=== PATIENT | female | born 1945 | race Caucasian/White ===

== ENCOUNTER 2017-01-31 10:07 | Inpatient (IN) | payer OTHER ==
[~2017-01-31] VITALS: Ht 165.1 cm; Wt 92.0 kg
[~2017-01-31 10:07] MED LIST: CALCIUM 600 +1 EA15 PO; FERROUS SULFAT324 M1 PO; FUROSEMIDE20 MG PO; GLYBURIDE1.25 MG PO; METFORMIN HCL1000 MG PO; PROMACTA50 MG PO; SPIRONOLACTONE50 MG PO; VITAMIN D32000 UNI1 PO
[2017-01-31 11:19] LABS: EOSINOPHIL (%) 0 % (0-5); HEMATOCRIT 32.4 % (36.0-46.0); IMMATURE GRANULOCYTE (%) 0.3 % (0.0-0.7); INSTRUMENT ABS NEUTROPHIL CT 2.5 K/uL; LYMPHOCYTE COUNT 0.4 K/uL (1.0-2.8); MCH 30.9 PG (29.0-34.0); MCHC 32.4 G/DL (30.0-36.0); MONOCYTE (%) 7.4 % (3-12); MONOCYTE COUNT 0.2 K/uL (0-0.8); NEUTROPHIL (%) 80.4 % (45-76); NEUTROPHIL COUNT 2.5 K/uL (1.8-6.4); RBC DIS.WIDTH-CV 15.6 % (11.8-14.6); RBC DIS.WIDTH-SD 54.4 % (39-53)
[2017-01-31 11:20] LABS: INTER. NORMALIZED RATIO 1.3
[2017-01-31 11:21] LABS: CHLORIDE 106 mEq/L (99-109); POTASSIUM 4.5 mEq/L (3.7-5.4); SODIUM 136 mEq/L (136-147)
[2017-01-31 11:23] LABS: GLUCOSE 162 mg/dL (70-99)
[2017-01-31 11:24] LABS: ANION GAP 7 MEQ/L (2-14)
[2017-01-31 11:25] LABS: TOTAL BILIRUBIN 3.1 mg/dL (0.0-1.0)
[2017-01-31 11:26] LABS: ALKALINE PHOSPHATASE 77 IU/L (3-129)
[2017-01-31 11:27] LABS: GFR ESTIMATE (CALCULATED) 52 mL/min/
[2017-01-31 11:28] LABS: UREA NITROGEN (BUN) 31 mg/dL (9-23)
[2017-01-31 11:30] LABS: LIPASE 31 U/L (1.0-51.0)
[2017-01-31 11:59] LABS: IMM.PLATELET FRACTION 2.7 (1-7); PLAT.SUFFICIENCY DECREASED
[2017-01-31 12:00] LABS: MCV 95.3 FL (83-99); PLATELET COUNT 42 K/uL (156-360); WHITE BLOOD COUNT 3.1 K/uL (4.1-10.2)
[2017-01-31] MEDS ORDERED: CALCIUM 600 +1 EAC3 PO (15:07)
[2017-01-31] MEDS ORDERED: PROAIR HFA8.5 GM IH (15:08)
[2017-01-31 22:19] LABS: POINT-OF-CARE METER ID UU13113675
[2017-02-01 00:01] VITALS: BP 121/56
[2017-02-01 03:46] VITALS: BP 117/53
[2017-02-01 07:49] LABS: HEMATOCRIT 22.7 % (36.0-46.0); MCH 31.7 PG (29.0-34.0); MCHC 32.2 G/DL (30.0-36.0); MCV 98.7 FL (83-99); RBC DIS.WIDTH-CV 15.8 % (11.8-14.6); RBC DIS.WIDTH-SD 57.1 % (39-53); WHITE BLOOD COUNT 2.6 K/uL (4.1-10.2)
[2017-02-01 08:02] LABS: IMM.PLATELET FRACTION 2.4 (1-7); PLAT.SUFFICIENCY DECREASED
[2017-02-01 08:04] LABS: PLATELET CLUMPS PRESENT
[2017-02-01 08:05] LABS: ANION GAP 6 MEQ/L (2-14); CHLORIDE 110 MEQ/L (99-109); GFR ESTIMATE (CALCULATED) 47 mL/min/; GLUCOSE 167 mg/dL (70-99); SAMPLE HEMOLYSIS CHECK 0; SAMPLE ICTERIC CHECK 0; SAMPLE LIPEMIA CHECK 0; SODIUM 139 MEQ/L (136-147); UREA NITROGEN (BUN) 34 mg/dL (9-23)
[2017-02-01 08:30] VITALS: BP 112/61
[2017-02-01 12:02] LABS: POINT-OF-CARE METER ID UU14162508
[2017-02-01 12:11] VITALS: BP 110/56
[2017-02-01 16:05] VITALS: BP 105/53
[2017-02-01 17:10] LABS: POINT-OF-CARE METER ID UU14162508
[2017-02-01 20:04] VITALS: BP 124/53
[2017-02-02 00:14] VITALS: BP 108/49
[2017-02-02 04:11] VITALS: BP 109/52
[2017-02-02 08:00] VITALS: BP 125/60
[2017-02-02 11:15] LABS: HEMATOCRIT 24.3 % (36.0-46.0); MCH 31.8 PG (29.0-34.0); MCHC 31.7 G/DL (30.0-36.0); MCV 100.4 FL (83-99); RBC DIS.WIDTH-CV 16.1 % (11.8-14.6); RBC DIS.WIDTH-SD 59.7 % (39-53); RED BLOOD COUNT 2.42 M/uL (3.80-5.20); WHITE BLOOD COUNT 3.2 K/uL (4.1-10.2)
[2017-02-02 11:44] LABS: IMM.PLATELET FRACTION 2.7 (1-7); PLAT.SUFFICIENCY DECREASED; PLATELET CLUMPS PRESENT - PLATELET COUNTS APPEARS DECREASED; PLATELET COUNT UNABLE TO REPORT K/uL (156-360)
[2017-02-02 11:51] VITALS: BP 112/51
[2017-02-02 16:00] VITALS: BP 128/60
[2017-02-02 16:20] LABS: POINT-OF-CARE METER ID UU13113714; POINT-OF-CARE USER ID ENVKLS06
[2017-02-02 16:43] LABS: POINT-OF-CARE METER ID UU14162508
[2017-02-02 22:37] LABS: POINT-OF-CARE METER ID UU14162508
[2017-02-02 23:26] VITALS: BP 121/58
[2017-02-03 07:38] LABS: HEMATOCRIT 23.8 % (36.0-46.0); MCH 32.1 PG (29.0-34.0); MCHC 31.9 G/DL (30.0-36.0); MCV 100.4 FL (83-99); RBC DIS.WIDTH-CV 16.4 % (11.8-14.6); RBC DIS.WIDTH-SD 59.7 % (39-53); RED BLOOD COUNT 2.37 M/uL (3.80-5.20); WHITE BLOOD COUNT 3.1 K/uL (4.1-10.2)
[2017-02-03 08:00] VITALS: BP 122/58
[2017-02-03 08:18] LABS: IMM.PLATELET FRACTION 2.5 (1-7); PLATELET CLUMPS PRESENT - PLATELET COUNTS APPEARS DECREASED
[2017-02-03 08:42] LABS: PLATELET COUNT 45 K/uL (156-360)
[2017-02-03 12:00] VITALS: BP 116/58
[2017-02-03 12:00] LABS: POINT-OF-CARE USER ID PUTDRM
[2017-02-03 16:00] VITALS: BP 120/56
[2017-02-03 16:53] LABS: POINT-OF-CARE USER ID PUTDRM
[2017-02-03 21:43] LABS: POINT-OF-CARE METER ID UU14162508
[2017-02-03 23:07] VITALS: BP 134/60
[2017-02-04 03:32] VITALS: BP 115/56
[2017-02-04 06:37] LABS: POINT-OF-CARE METER ID UU14162508
[2017-02-04 07:05] VITALS: BP 134/61
[2017-02-04 11:26] LABS: POINT-OF-CARE METER ID UU14162508
[2017-02-04 15:50] VITALS: BP 129/54
[2017-02-04 22:29] LABS: POINT-OF-CARE METER ID UU14162508
[2017-02-04 23:44] VITALS: BP 115/55
[2017-02-05 06:38] LABS: POINT-OF-CARE METER ID UU14162508
[2017-02-05 07:05] LABS: HEMATOCRIT 21.5 % (36.0-46.0); MCH 32.6 PG (29.0-34.0); MCHC 33.5 G/DL (30.0-36.0); MCV 97.3 FL (83-99); RBC DIS.WIDTH-CV 16.4 % (11.8-14.6); RBC DIS.WIDTH-SD 56.9 % (39-53); RED BLOOD COUNT 2.21 M/uL (3.80-5.20)
[2017-02-05 07:08] LABS: WHITE BLOOD COUNT 1.9 K/uL (4.1-10.2)
[2017-02-05 07:25] VITALS: BP 124/58
[2017-02-05 07:47] LABS: IMM.PLATELET FRACTION 2.8 (1-7); MEAN PLAT.VOLUME 12.4 uM^3 (9.5-12.4); PLAT.SUFFICIENCY DECREASED
[2017-02-05 07:49] LABS: PLATELET COUNT ND K/uL (156-360)
[2017-02-05 11:56] LABS: POINT-OF-CARE METER ID UU14162508
[2017-02-05 15:22] VITALS: BP 117/57
[2017-02-05 16:31] LABS: POINT-OF-CARE METER ID UU14162508
[2017-02-05] MEDS ORDERED: TRAMADOL HCL50 MG PO (19:52)
== END 2017-02-05 20:15 | disposition home or self-care (01) | DRG 336 ==
LOC: EME 10:07 → EDOF 15:37 → 2SOUTH 15:37 → EDOF 15:47 → 2EASTP 23:40
PROVIDERS: Emergency Medicine; Physician Assistant Surgical; Surgery
DX: K43.0 Incisional hernia with obstruction, without gangrene (principal); K66.0 Peritoneal adhesions (postprocedural) (postinfection); K76.6 Portal hypertension; D61.818 Other pancytopenia; D62 Acute posthemorrhagic anemia; K74.60 Unspecified cirrhosis of liver; E61.1 Iron deficiency; E66.9 Obesity, unspecified; I50.9 Heart failure, unspecified; Z90.49 Acquired absence of other specified parts of digestive tract; Z68.33 Body mass index [BMI] 33.0-33.9, adult; Z85.038 Personal history of other malignant neoplasm of large intestine
CPT/HCPCS: 71010; 74176; 74177; 80048; 80053; 82565; 82948; 83690; 84520; 85025; 85027; 85610; 99281; 99285; C1781; G0378; J0690; J1100; J1200; J1815; J2250; J2270; J2405; J3010; J7030; J7120

== ENCOUNTER 2017-02-27 16:59 | Inpatient (IN) | payer OTHER ==
[~2017-02-27] VITALS: Ht 165.1 cm; Wt 90.6 kg
[~2017-02-27 16:59] MED LIST changes: +CALCIUM 600 +1 EAC3 PO; +PROAIR HFA8.5 GM IH; +TRAMADOL HCL50 MG PO
[2017-02-27 17:30] LABS: HEMATOCRIT 26.9 % (36.0-46.0); MCH 32.3 PG (29.0-34.0); MCHC 32.3 G/DL (30.0-36.0); RBC DIS.WIDTH-CV 17.3 % (11.8-14.6); RBC DIS.WIDTH-SD 64.2 % (39-53); RED BLOOD COUNT 2.69 M/uL (3.80-5.20)
[2017-02-27 17:34] LABS: CHLORIDE 104 mEq/L (99-109); POTASSIUM 4.3 mEq/L (3.7-5.4); SODIUM 138 mEq/L (136-147)
[2017-02-27 17:36] LABS: GLUCOSE 170 mg/dL (70-99)
[2017-02-27 17:37] LABS: ANION GAP 12 MEQ/L (2-14)
[2017-02-27 17:40] LABS: GFR ESTIMATE (CALCULATED) 43 mL/min/; UREA NITROGEN (BUN) 25 mg/dL (9-23)
[2017-02-27 18:14] LABS: IMM.PLATELET FRACTION 3.4 (1-7); PLAT.SUFFICIENCY DECREASED; PLATELET CLUMPS PRESENT - PLATELET COUNTS APPEARS DECREASED; PLATELET COUNT UNABLE TO REPORT K/uL (156-360)
[2017-02-27] MEDS ORDERED: ALDACTONE25 MG PO (21:07)
[2017-02-27] MEDS ORDERED: FEOSOL325 MG PO (21:07)
[2017-02-27 21:11] LABS: ADD MIUA? YES; BILIRUBIN NEGATIVE; BLOOD LARGE; COLOR YELLOW ((YELLOW)); GLUCOSE (STRIP) NEGATIVE; KETONES NEGATIVE; LEUKOCYTES TRACE; NITRITE NEGATIVE; PROTEIN (STRIP) NEGATIVE; SPECIFIC GRAVITY 1.018 (1.000-1.030); UROBILINOGEN 0.2 MG/DL (0.2-1.0)
[2017-02-27 21:35] LABS: BACTERIA 1+ /HPF; EPITHELIAL CELLS 2+ /HPF; MUCUS NONE SEEN /LPF; RED BLOOD CELLS TNTC /HPF (0-5); UCUL ADDED? NO; WHITE BLOOD CELLS 0-5 /HPF (0-5)
[2017-02-27 22:08] VITALS: BP 151/69
[2017-02-27 23:37] LABS: HEMATOCRIT 21.8 % (36.0-46.0); IMM.PLATELET FRACTION 2.5 (1-7); MCH 33.2 PG (29.0-34.0); MCHC 33.5 G/DL (30.0-36.0); MCV 99.1 FL (83-99); PLAT.SUFFICIENCY DECREASED; PLATELET CLUMPS PRESENT - PLATELET COUNTS APPEARS DECREASED; PLATELET COUNT UNABLE TO REPORT K/uL (156-360); RBC DIS.WIDTH-CV 17.4 % (11.8-14.6); RBC DIS.WIDTH-SD 63.8 % (39-53)
[2017-02-28] VITALS (11 sets, daily range): BP systolic 113–149; BP diastolic 57–67
[2017-02-28 06:45] LABS: HEMATOCRIT 20.4 % (36.0-46.0); MCH 33.2 PG (29.0-34.0); MCHC 33.3 G/DL (30.0-36.0); MCV 99.5 FL (83-99); RBC DIS.WIDTH-CV 17.4 % (11.8-14.6); RBC DIS.WIDTH-SD 63.3 % (39-53); RED BLOOD COUNT 2.05 M/uL (3.80-5.20)
[2017-02-28 06:53] LABS: INTER. NORMALIZED RATIO 1.3; PROTHROMBIN TIME 13.7 (9.2-11.2); PTT 26.7 (25-32)
[2017-02-28 07:05] LABS: WHITE BLOOD COUNT 1.7 K/uL (4.1-10.2)
[2017-02-28 07:07] LABS: ANION GAP 7 MEQ/L (2-14); CHLORIDE 104 MEQ/L (99-109); GFR ESTIMATE (CALCULATED) 47 mL/min/; GLUCOSE 130 mg/dL (70-99); POTASSIUM 4.2 MEQ/L (3.7-5.4); SAMPLE HEMOLYSIS CHECK 0; SAMPLE ICTERIC CHECK 0; SAMPLE LIPEMIA CHECK 0; SODIUM 136 MEQ/L (136-147); UREA NITROGEN (BUN) 28 mg/dL (9-23)
[2017-02-28 07:22] LABS: PLATELET COUNT UNABLE TO REPORT K/uL (156-360)
[2017-02-28 07:23] LABS: HEMATOLOGY COMMENT 1 SN; PLAT.SUFFICIENCY DECREASED
[2017-02-28 10:59] LABS: EOSINOPHIL (%) 4.4 % (0-5); EOSINOPHIL COUNT 0.1 K/uL (0-0.3); HEMATOCRIT 21.8 % (36.0-46.0); IMM.PLATELET FRACTION 1.9 (1-7); IMMATURE GRANULOCYTE (%) 0.5 % (0.0-0.7); LYMPHOCYTE COUNT 0.5 K/uL (1.0-2.8); MCH 32.9 PG (29.0-34.0); MCV 99.5 FL (83-99); MONOCYTE (%) 14.3 % (3-12); MONOCYTE COUNT 0.3 K/uL (0-0.8); NEUTROPHIL (%) 53.4 % (45-76); PLAT.SUFFICIENCY DECREASED; PLATELET COUNT UNABLE TO REPORT K/uL (156-360); RBC DIS.WIDTH-CV 17.4 % (11.8-14.6); RBC DIS.WIDTH-SD 62.7 % (39-53); RED BLOOD COUNT 2.19 M/uL (3.80-5.20)
[2017-02-28 11:00] LABS: WHITE BLOOD COUNT 1.8 K/uL (4.1-10.2)
[2017-02-28 18:03] LABS: HEMATOCRIT 24.3 % (36.0-46.0); MCH 32.7 PG (29.0-34.0); MCHC 32.9 G/DL (30.0-36.0); MCV 99.2 FL (83-99); RBC DIS.WIDTH-SD 62.3 % (39-53); RED BLOOD COUNT 2.45 M/uL (3.80-5.20)
[2017-02-28 18:04] LABS: PLATELET COUNT 50 K/uL (156-360); WHITE BLOOD COUNT 1.6 K/uL (4.1-10.2)
[2017-02-28 21:14] LABS: PLATELET CLUMPS PRESENT - PLATELET COUNTS APPEARS DECREASED
[2017-03-01 00:12] VITALS: BP 106/53
[2017-03-01 01:19] VITALS: BP 115/54
[2017-03-01 02:41] VITALS: BP 101/51
[2017-03-01 06:22] LABS: HEMATOCRIT 23.1 % (36.0-46.0); MCH 32.5 PG (29.0-34.0); MCHC 33.3 G/DL (30.0-36.0); MCV 97.5 FL (83-99); RBC DIS.WIDTH-CV 17.7 % (11.8-14.6); RED BLOOD COUNT 2.37 M/uL (3.80-5.20); WHITE BLOOD COUNT 2.6 K/uL (4.1-10.2)
[2017-03-01 06:42] LABS: ALKALINE PHOSPHATASE 73 IU/L (3-129); ANION GAP 9 MEQ/L (2-14); CHLORIDE 105 MEQ/L (99-109); GFR ESTIMATE (CALCULATED) 43 mL/min/; GLUCOSE 132 mg/dL (70-99); POTASSIUM 4.3 MEQ/L (3.7-5.4); SAMPLE HEMOLYSIS CHECK 0; SAMPLE ICTERIC CHECK 1; SAMPLE LIPEMIA CHECK 0; SODIUM 138 MEQ/L (136-147); TOTAL BILIRUBIN 3.6 MG/DL (0.0-1.0); UREA NITROGEN (BUN) 27 mg/dL (9-23)
[2017-03-01 06:52] LABS: INTER. NORMALIZED RATIO 1.5; PROTHROMBIN TIME 15.2 (9.2-11.2); PTT 30.5 (25-32)
[2017-03-01 07:04] LABS: IMM.PLATELET FRACTION 1.8 (1-7); MEAN PLAT.VOLUME 12.8 uM^3 (9.5-12.4); PLAT.SUFFICIENCY DECREASED; PLATELET COUNT 49 K/uL (156-360)
[2017-03-01 07:57] VITALS: BP 102/67
[2017-03-01 10:26] LABS: HEMATOCRIT 25.7 % (36.0-46.0); MCH 31.9 PG (29.0-34.0); MCHC 32.3 G/DL (30.0-36.0); MCV 98.8 FL (83-99); RBC DIS.WIDTH-CV 17.8 % (11.8-14.6); RBC DIS.WIDTH-SD 64.9 % (39-53); WHITE BLOOD COUNT 2.4 K/uL (4.1-10.2)
[2017-03-01 10:42] LABS: IMM.PLATELET FRACTION 2.9 (1-7); PLAT.SUFFICIENCY DECREASED; PLATELET COUNT 50 K/uL (156-360)
[2017-03-01 15:40] VITALS: BP 111/56
[2017-03-01 17:24] LABS: HEMATOCRIT 25.8 % (36.0-46.0); MCH 33.3 PG (29.0-34.0); MCHC 34.1 G/DL (30.0-36.0); MCV 97.7 FL (83-99); PLAT.SUFFICIENCY DECREASED; PLATELET CLUMPS PRESENT - PLATELET COUNTS APPEARS DECREASED; RBC DIS.WIDTH-CV 17.7 % (11.8-14.6); RED BLOOD COUNT 2.64 M/uL (3.80-5.20); WHITE BLOOD COUNT 2.3 K/uL (4.1-10.2)
[2017-03-01 17:28] LABS: PLATELET COUNT UNABLE TO REPORT K/uL (156-360)
[2017-03-01 22:28] VITALS: BP 109/56
[2017-03-02] VITALS (13 sets, daily range): BP systolic 92–145; BP diastolic 48–79
[2017-03-02 07:24] LABS: INTER. NORMALIZED RATIO 1.5; PROTHROMBIN TIME 15.4 (9.2-11.2)
[2017-03-02 07:34] LABS: ANION GAP 9 MEQ/L (2-14); CHLORIDE 104 MEQ/L (99-109); GFR ESTIMATE (CALCULATED) 47 mL/min/; GLUCOSE 121 mg/dL (70-99); POTASSIUM 3.9 MEQ/L (3.7-5.4); SAMPLE HEMOLYSIS CHECK 0; SAMPLE ICTERIC CHECK 1; SAMPLE LIPEMIA CHECK 0; SODIUM 137 MEQ/L (136-147); UREA NITROGEN (BUN) 24 mg/dL (9-23)
[2017-03-02 07:36] LABS: EOSINOPHIL COUNT 0.1 K/uL (0-0.3); HEMATOCRIT 23.2 % (36.0-46.0); IMMATURE GRANULOCYTE (%) 0.6 % (0.0-0.7); INSTRUMENT ABS NEUTROPHIL CT 0.9 K/uL; LYMPHOCYTE COUNT 0.4 K/uL (1.0-2.8); MCH 32.6 PG (29.0-34.0); MCHC 33.6 G/DL (30.0-36.0); MCV 97.1 FL (83-99); MONOCYTE (%) 20.1 % (3-12); MONOCYTE COUNT 0.3 K/uL (0-0.8); NEUTROPHIL (%) 52.5 % (45-76); NEUTROPHIL COUNT 0.9 K/uL (1.8-6.4); RBC DIS.WIDTH-CV 17.5 % (11.8-14.6); RBC DIS.WIDTH-SD 61.8 % (39-53); RED BLOOD COUNT 2.39 M/uL (3.80-5.20)
[2017-03-02 07:39] LABS: WHITE BLOOD COUNT 1.6 K/uL (4.1-10.2)
[2017-03-02 07:56] LABS: IMM.PLATELET FRACTION 2.9 (1-7); PLAT.SUFFICIENCY DECREASED; PLATELET CLUMPS PRESENT - PLATELET COUNT APPEARS INCREASED; PLATELET COUNT UNABLE TO REPORT K/uL (156-360)
[2017-03-02 15:31] LABS: HEMATOCRIT 23.4 % (36.0-46.0); MCH 32.8 PG (29.0-34.0); MCHC 33.8 G/DL (30.0-36.0); MCV 97.1 FL (83-99); RBC DIS.WIDTH-CV 17.4 % (11.8-14.6); RBC DIS.WIDTH-SD 61.1 % (39-53); RED BLOOD COUNT 2.41 M/uL (3.80-5.20)
[2017-03-02 15:37] LABS: PLAT.SUFFICIENCY DECREASED; PLATELET CLUMPS PRESENT - PLATELET COUNTS APPEARS DECREASED; PLATELET COUNT UNABLE TO REPORT K/uL (156-360)
[2017-03-02 15:53] LABS: POINT-OF-CARE METER ID UU14174212
[2017-03-03 06:48] LABS: HEMATOCRIT 22.1 % (36.0-46.0); MCH 31.9 PG (29.0-34.0); MCV 96.5 FL (83-99); RBC DIS.WIDTH-CV 17.4 % (11.8-14.6); RBC DIS.WIDTH-SD 60.8 % (39-53); RED BLOOD COUNT 2.29 M/uL (3.80-5.20)
[2017-03-03 06:53] LABS: WHITE BLOOD COUNT 1.5 K/uL (4.1-10.2)
[2017-03-03 07:04] VITALS: BP 109/71
[2017-03-03 07:53] LABS: IMM.PLATELET FRACTION 3.1 (1-7); PLATELET CLUMPS PRESENT - PLATELET COUNTS APPEARS DECREASED; PLATELET COUNT UNABLE TO REPORT K/uL (156-360)
[2017-03-03] MEDS ORDERED: PROTONIX IV40 MG IV (12:33)
[2017-03-03] MEDS ORDERED: FLAGYL500 MG PO (12:33)
[2017-03-03] MEDS ORDERED: LEVAQUIN500 MG PO (12:33)
[2017-03-03] MEDS ORDERED: ALDACTONE100 MG PO (12:33)
[2017-03-03] MEDS ORDERED: PANTOPRAZOLE SO40 MG PO (12:34)
== END 2017-03-03 14:38 | disposition home or self-care (01) | DRG 392 ==
LOC: EME 16:59 → EDOF 21:15 → 5EAST 21:15
PROVIDERS: Hospitalist; Internal Medicine Gastroenterology; Internal Medicine Medical Oncology; Nurse Practitioner Family; Student in an Organized Health Care Education/Training Program
PROC: 30233N1 Transfusion of Nonautologous Red Blood Cells into Peripheral Vein, Percutaneous Approach (ICD-10-PCS; 2017-02-28)
PROC: 30233R1 Transfusion of Nonautologous Platelets into Peripheral Vein, Percutaneous Approach (ICD-10-PCS; principal; 2017-03-02)
PROC: 0DJ08ZZ Inspection of Upper Intestinal Tract, Via Natural or Artificial Opening Endoscopic (ICD-10-PCS; 2017-03-02)
PROC: 0DJD8ZZ Inspection of Lower Intestinal Tract, Via Natural or Artificial Opening Endoscopic (ICD-10-PCS; 2017-03-02)
DX: K52.9 Noninfective gastroenteritis and colitis, unspecified (principal); K62.5 Hemorrhage of anus and rectum; D62 Acute posthemorrhagic anemia; D61.818 Other pancytopenia; K74.69 Other cirrhosis of liver; K76.6 Portal hypertension; K31.89 Other diseases of stomach and duodenum; I85.00 Esophageal varices without bleeding; K72.90 Hepatic failure, unspecified without coma; K75.81 Nonalcoholic steatohepatitis (NASH); R18.8 Other ascites; K64.8 Other hemorrhoids; I12.9 Hypertensive chronic kidney disease with stage 1 through stage 4 chronic kidney disease, or unspecified chronic kidney disease; I50.9 Heart failure, unspecified; R01.1 Cardiac murmur, unspecified; E11.9 Type 2 diabetes mellitus without complications; R16.1 Splenomegaly, not elsewhere classified; Z86.010 Personal history of colon polyps; Z85.038 Personal history of other malignant neoplasm of large intestine; Z87.891 Personal history of nicotine dependence; Z90.49 Acquired absence of other specified parts of digestive tract
CPT/HCPCS: 74177; 80048; 80053; 80069; 81003; 82948; 83605; 85014; 85018; 85025; 85027; 85610; 85730; 86860; 86870; 86880; 86900; 86901; 86905; 86920; 87040; 93970; 99202; 99281; 99285; C9113; J1200; J1956; J7030; P9016; P9035; P9037; S0030

== ENCOUNTER 2017-03-31 03:34 | Inpatient (IN) | payer OTHER ==
[~2017-03-31] VITALS: Ht 165.1 cm; Wt 82.5 kg
[~2017-03-31 03:34] MED LIST changes: +ALDACTONE100 MG PO; +ALDACTONE25 MG PO; +FEOSOL325 MG PO; +FLAGYL500 MG PO; +LEVAQUIN500 MG PO; +PANTOPRAZOLE SO40 MG PO; +PROTONIX IV40 MG IV
[2017-03-31 04:15] LABS: CREATININE 1.5 mg/dL (0.6-1.3); POTASSIUM 4.3 mEq/L (3.7-5.4)
[2017-03-31 04:17] LABS: POINT-OF-CARE METER ID UU14100415
[2017-03-31 04:22] LABS: ADD MIUA? YES; BILIRUBIN NEGATIVE; BLOOD MODERATE; COLOR YELLOW ((YELLOW)); GLUCOSE (STRIP) NEGATIVE; KETONES NEGATIVE; LEUKOCYTES TRACE; NITRITE NEGATIVE; PROTEIN (STRIP) NEGATIVE; UROBILINOGEN 0.2 MG/DL (0.2-1.0)
[2017-03-31] MEDS ORDERED: ALDACTONE100 MG PO (04:28)
[2017-03-31] MEDS ORDERED: LASIX20 MG PO (04:28)
[2017-03-31 04:29] LABS: EOSINOPHIL (%) 1.4 % (0-5); HEMATOCRIT 28.1 % (36.0-46.0); IMMATURE GRANULOCYTE (%) 0.5 % (0.0-0.7); INSTRUMENT ABS NEUTROPHIL CT 1.4 K/uL; LYMPHOCYTE COUNT 0.3 K/uL (1.0-2.8); MCH 33.1 PG (29.0-34.0); MCHC 33.8 G/DL (30.0-36.0); MCV 97.9 FL (83-99); MONOCYTE (%) 12.1 % (3-12); MONOCYTE COUNT 0.3 K/uL (0-0.8); NEUTROPHIL (%) 69.6 % (45-76); NEUTROPHIL COUNT 1.4 K/uL (1.8-6.4); RBC DIS.WIDTH-CV 15.9 % (11.8-14.6); RBC DIS.WIDTH-SD 57.1 % (39-53); RED BLOOD COUNT 2.87 M/uL (3.80-5.20); WHITE BLOOD COUNT 2.1 K/uL (4.1-10.2)
[2017-03-31 04:32] LABS: CHLORIDE 102 mEq/L (99-109); POTASSIUM 4.3 mEq/L (3.7-5.4); SODIUM 135 mEq/L (136-147)
[2017-03-31 04:34] LABS: GLUCOSE 211 mg/dL (70-99)
[2017-03-31 04:35] LABS: ANION GAP 9 MEQ/L (2-14)
[2017-03-31 04:36] LABS: TOTAL BILIRUBIN 2.2 mg/dL (0.0-1.0)
[2017-03-31 04:37] LABS: ALKALINE PHOSPHATASE 101 IU/L (3-129)
[2017-03-31 04:38] LABS: GFR ESTIMATE (CALCULATED) 32 mL/min/
[2017-03-31 04:39] LABS: DIRECT BILIRUBIN 1.1 mg/dL (0.0-0.3); UREA NITROGEN (BUN) 29 mg/dL (9-23)
[2017-03-31 04:41] LABS: CREATINE KINASE 20 IU/L (1-294)
[2017-03-31 04:52] LABS: BACTERIA 2+ /HPF; EPITHELIAL CELLS NONE SEEN /HPF; MUCUS NONE SEEN /LPF; RED BLOOD CELLS 0-5 /HPF (0-5); UCUL ADDED? YES
[2017-03-31 06:46] LABS: PLAT.SUFFICIENCY DECREASED
[2017-03-31 06:47] LABS: PLATELET CLUMPS PRESENT
[2017-03-31 06:59] LABS: HDL CHOLESTEROL 36 MG/DL (Desirable>=50); LDL CHOLESTEROL 79 mg/dL (Desirable<100); NON-HDL CHOLESTEROL 90 mg/dL (Desirable<160); TOTAL CHOLESTEROL 126 mg/dL (Desirable<200); TRIGLYCERIDES 54 MG/DL (Normal: <150)
[2017-03-31 07:51] VITALS: BP 139/55
[2017-03-31 11:09] VITALS: BP 128/63
[2017-03-31 13:12] LABS: TROP-I INTERPRETATION NEGATIVE; TROPONIN-I < 0.01 ng/mL (0.0-0.30)
[2017-03-31 15:28] VITALS: BP 161/67
[2017-03-31 16:34] LABS: UR CREATININE CONCENTRATION 56.8 MG/DL
[2017-03-31 18:51] LABS: TROP-I INTERPRETATION NEGATIVE; TROPONIN-I 0.01 ng/mL (0.0-0.30)
[2017-03-31 20:08] VITALS: BP 153/63
[2017-04-01 00:26] VITALS: BP 135/62
[2017-04-01 01:31] LABS: TROP-I INTERPRETATION NEGATIVE; TROPONIN-I < 0.01 ng/mL (0.0-0.30)
[2017-04-01 04:14] VITALS: BP 138/62
[2017-04-01 07:28] VITALS: BP 149/69
[2017-04-01 07:47] LABS: EOSINOPHIL (%) 1.4 % (0-5); HEMATOCRIT 22.8 % (36.0-46.0); IMMATURE GRANULOCYTE (%) 0.5 % (0.0-0.7); INSTRUMENT ABS NEUTROPHIL CT 1.3 K/uL; LYMPHOCYTE COUNT 0.5 K/uL (1.0-2.8); MCH 33.9 PG (29.0-34.0); MCHC 33.8 G/DL (30.0-36.0); MCV 100.4 FL (83-99); MONOCYTE (%) 12.2 % (3-12); MONOCYTE COUNT 0.3 K/uL (0-0.8); NEUTROPHIL COUNT 1.3 K/uL (1.8-6.4); RBC DIS.WIDTH-CV 16.1 % (11.8-14.6); RBC DIS.WIDTH-SD 59.7 % (39-53); WHITE BLOOD COUNT 2.1 K/uL (4.1-10.2)
[2017-04-01 08:01] LABS: ANISOCYTOSIS 1+; IMM.PLATELET FRACTION 2.7 (1-7); PLAT.SUFFICIENCY DECREASED; PLATELET CLUMPS PRESENT - PLATELET COUNTS APPEARS DECREASED; PLATELET COUNT UNABLE TO REPORT K/uL (156-360); POIKILOCYTOSIS 2+; POLYCHROMASIA 3+; RED BLOOD COUNT 2.27 M/uL (3.80-5.20)
[2017-04-01 08:07] LABS: ALKALINE PHOSPHATASE 83 IU/L (3-129); ANION GAP 8 MEQ/L (2-14); CHLORIDE 108 MEQ/L (99-109); GFR ESTIMATE (CALCULATED) 37 mL/min/; GLUCOSE 160 mg/dL (70-99); POTASSIUM 4.3 MEQ/L (3.7-5.4); SAMPLE HEMOLYSIS CHECK 0; SAMPLE ICTERIC CHECK 0; SAMPLE LIPEMIA CHECK 0; SODIUM 140 MEQ/L (136-147); TOTAL BILIRUBIN 2.6 MG/DL (0.0-1.0); UREA NITROGEN (BUN) 27 mg/dL (9-23)
[2017-04-01 11:09] VITALS: BP 150/67
[2017-04-01 14:01] LABS: HEMATOCRIT 23.8 % (36.0-46.0); MCH 33.6 PG (29.0-34.0); MCHC 33.2 G/DL (30.0-36.0); MCV 101.3 FL (83-99); RBC DIS.WIDTH-CV 16.2 % (11.8-14.6); RBC DIS.WIDTH-SD 60.5 % (39-53); RED BLOOD COUNT 2.35 M/uL (3.80-5.20); WHITE BLOOD COUNT 2.1 K/uL (4.1-10.2)
[2017-04-01 14:24] LABS: IMM.PLATELET FRACTION 3.6 (1-7); PLAT.SUFFICIENCY DECREASED; PLATELET CLUMPS PRESENT - PLATELET COUNT APPEARS ADQ.; PLATELET COUNT UNABLE TO REPORT K/uL (156-360)
[2017-04-01 15:17] VITALS: BP 178/71
[2017-04-01 19:29] VITALS: BP 137/73
[2017-04-02] VITALS (15 sets, daily range): BP systolic 123–171; BP diastolic 58–84
[2017-04-02 06:30] LABS: EOSINOPHIL (%) 2.6 % (0-5); HEMATOCRIT 19.8 % (36.0-46.0); IMMATURE GRANULOCYTE (%) 0.6 % (0.0-0.7); INSTRUMENT ABS NEUTROPHIL CT 0.9 K/uL; LYMPHOCYTE COUNT 0.4 K/uL (1.0-2.8); MCH 33.7 PG (29.0-34.0); MCHC 33.3 G/DL (30.0-36.0); MONOCYTE (%) 12.2 % (3-12); MONOCYTE COUNT 0.2 K/uL (0-0.8); NEUTROPHIL (%) 55.8 % (45-76); NEUTROPHIL COUNT 0.9 K/uL (1.8-6.4); RBC DIS.WIDTH-CV 16.2 % (11.8-14.6); RBC DIS.WIDTH-SD 59.8 % (39-53); RED BLOOD COUNT 1.96 M/uL (3.80-5.20)
[2017-04-02 06:34] LABS: WHITE BLOOD COUNT 1.6 K/uL (4.1-10.2)
[2017-04-02 07:05] LABS: ANION GAP 9 MEQ/L (2-14); CHLORIDE 110 MEQ/L (99-109); GFR ESTIMATE (CALCULATED) 43 mL/min/; GLUCOSE 179 mg/dL (70-99); SAMPLE HEMOLYSIS CHECK 0; SAMPLE ICTERIC CHECK 0; SAMPLE LIPEMIA CHECK 0; SODIUM 138 MEQ/L (136-147); UREA NITROGEN (BUN) 24 mg/dL (9-23)
[2017-04-02 07:38] LABS: ANISOCYTOSIS 1+; IMM.PLATELET FRACTION 3.1 (1-7); MACROCYTES 1+; PLAT.SUFFICIENCY DECREASED; PLATELET CLUMPS PRESENT - PLATELET COUNTS APPEARS DECREASED; PLATELET COUNT UNABLE TO REPORT K/uL (156-360); POIKILOCYTOSIS 1+
[2017-04-02 08:30] LABS: ALKALINE PHOSPHATASE 76 IU/L (3-129); DIRECT BILIRUBIN 0.7 mg/dL (0.0-0.3); TOTAL BILIRUBIN 2.4 MG/DL (0.0-1.0)
[2017-04-03 03:31] VITALS: BP 136/66
[2017-04-03 06:40] LABS: EOSINOPHIL (%) 1.5 % (0-5); HEMATOCRIT 22.8 % (36.0-46.0); IMMATURE GRANULOCYTE (%) 0.5 % (0.0-0.7); INSTRUMENT ABS NEUTROPHIL CT 1.2 K/uL; LYMPHOCYTE COUNT 0.5 K/uL (1.0-2.8); MCH 32.8 PG (29.0-34.0); MCHC 33.3 G/DL (30.0-36.0); MCV 98.3 FL (83-99); MONOCYTE COUNT 0.3 K/uL (0-0.8); NEUTROPHIL COUNT 1.2 K/uL (1.8-6.4); RBC DIS.WIDTH-CV 16.9 % (11.8-14.6); RED BLOOD COUNT 2.32 M/uL (3.80-5.20)
[2017-04-03 06:47] LABS: ALKALINE PHOSPHATASE 75 IU/L (3-129); ANION GAP 6 MEQ/L (2-14); CHLORIDE 110 MEQ/L (99-109); GFR ESTIMATE (CALCULATED) 43 mL/min/; GLUCOSE 153 mg/dL (70-99); POTASSIUM 4.3 MEQ/L (3.7-5.4); SAMPLE HEMOLYSIS CHECK 0; SAMPLE ICTERIC CHECK 0; SAMPLE LIPEMIA CHECK 0; SODIUM 138 MEQ/L (136-147); TOTAL BILIRUBIN 2.5 MG/DL (0.0-1.0); UREA NITROGEN (BUN) 21 mg/dL (9-23)
[2017-04-03 07:14] LABS: PLAT.SUFFICIENCY DECREASED; PLATELET CLUMPS PRESENT - PLATELET COUNTS APPEARS DECREASED; PLATELET COUNT UNABLE TO REPORT K/uL (156-360)
[2017-04-03 08:25] VITALS: BP 127/61
[2017-04-03 12:07] VITALS: BP 152/79
[2017-04-03 15:06] VITALS: BP 132/66
[2017-04-03] MEDS ORDERED: CEFTIN500 MG PO (15:28)
[2017-04-03] MEDS ORDERED: ALDACTONE100 MG PO (15:29)
[2017-04-03] MEDS ORDERED: LASIX20 MG PO (15:30)
[2017-04-03] MEDS ORDERED: XIFAXAN550 MG PO (15:34)
[2017-04-03] MEDS ORDERED: KRISTALOSE10 GM PO (15:35)
== END 2017-04-03 16:19 | disposition home or self-care (01) | DRG 441 ==
LOC: EME 03:34 → ENRESERV 05:57 → EDOF 05:57 → 5SOUTH 05:57 → ENRESERV 06:40 → 5SOUTH 07:21
PROVIDERS: Emergency Medicine; Hospitalist; Internal Medicine; Internal Medicine Nephrology
DX: K72.90 Hepatic failure, unspecified without coma (principal); N39.0 Urinary tract infection, site not specified; J90 Pleural effusion, not elsewhere classified; N17.9 Acute kidney failure, unspecified; D61.818 Other pancytopenia; G93.41 Metabolic encephalopathy; K92.2 Gastrointestinal hemorrhage, unspecified; N28.1 Cyst of kidney, acquired; R18.8 Other ascites; K75.81 Nonalcoholic steatohepatitis (NASH); R16.1 Splenomegaly, not elsewhere classified; I27.2 Other secondary pulmonary hypertension; D63.8 Anemia in other chronic diseases classified elsewhere; D72.819 Decreased white blood cell count, unspecified; K76.6 Portal hypertension; I10 Essential (primary) hypertension; T50.2X5A Adverse effect of carbonic-anhydrase inhibitors, benzothiadiazides and other diuretics, initial encounter; E11.9 Type 2 diabetes mellitus without complications; Z90.49 Acquired absence of other specified parts of digestive tract; Z87.891 Personal history of nicotine dependence; Z82.49 Family history of ischemic heart disease and other diseases of the circulatory system; Z85.038 Personal history of other malignant neoplasm of large intestine; Z91.041 Radiographic dye allergy status; Z88.0 Allergy status to penicillin
CPT/HCPCS: 36415; 70450; 71010; 76770; 80047; 80048; 80053; 80061; 80076; 81003; 82105 90; 82140; 82436; 82550; 82570; 82948; 83605; 84156; 84300; 84484; 84540; 85025; 85025 91; 85027; 85045; 85610; 86860; 86870; 86880; 86900; 86901; 86905; 86920; 86999; 87040; 87077; 87086; 87186; 93005; 99202; 99281; 99285; J0696; J0744; J2405; J7030; J7050; P9016; P9035; P9047